=== PATIENT | female | born 1995 | race African-American/Black ===

== ENCOUNTER 2017-03-13 19:59 | Emergency (ER) | payer MEDICAID, OTHER ==
[~2017-03-13 19:59] MED LIST: OXYC1SOL5 PO; ZOVI800T13 PO
[2017-03-13 20:00] VITALS: BP 136/82; PULSE 64; RESP 16; TEMP 98.8; O2SAT 98
== END 2017-03-13 21:26 | disposition left against medical advice (07) ==
LOC: NED 19:59
DX: K92.9 Disease of digestive system, unspecified (principal)
CPT/HCPCS: 99281

== ENCOUNTER 2017-11-26 11:11 | Emergency (ER) | payer MEDICAID ==
[2017-11-26 11:12] VITALS: BP 119/84; PULSE 90; RESP 14; TEMP 98.2; O2SAT 100
[2017-11-26 11:42] VITALS: BP 122/71; PULSE 75; RESP 17; O2SAT 100
--- NOTE | 2017-11-26 12:30 | PD ---
HPI Chief Complaint: Dizziness Time Seen by Provider: 12:17 Travel History International Travel<30 days: No Contact w/Intl Traveler<30days: No Traveled to known affect area: No History of Present Illness HPI The patient was seen and examined in the presence of the nurse. This patient complains of lightheadedness and dizziness for one week. Severity is moderate. Reports at times feeling off balance. She denies any specific sensation of movement or room spinning vertigo type sensation. No syncope. No head injury or fever. No alleviating factors. No exacerbating factors. She doesn't think she is . PFSH Past Medical History Developmental Delay: No Diminished Hearing: No Immunizations Current: Yes ?: Not LMP: 11/08/2017 : 2 Para: 1 Social History Alcohol Use: No Tobacco Use: No Substance Use: No Allergies-Medications (Allergen,Severity, Reaction): Coded Allergies: No Known Allergies (Verified , 09/03/15) Reported Meds & Prescriptions Reported Meds & Active Scripts Active Oxycodone/Acetaminophen 5 mg/325 mg 1 Tab Tab 1 Tab PO Q4H PRN Reported Zovirax (Acyclovir) 800 Mg Tab 500 Mg PO BID Review of Systems General / Constitutional: No: Fever Eyes: No: Visual changes HENT: Positive: Lightheadedness, No: Headaches Cardiovascular: No: Chest Pain or Discomfort Respiratory: No: Shortness of Breath Gastrointestinal: No: Abdominal Pain Genitourinary: No: Dysuria Musculoskeletal: No: Pain Skin: No Rash Neurologic: Positive: Dizziness Psychiatric: No: Depression Endocrine: No: Polydipsia Hematologic/Lymphatic: No: Easy Bruising Physical Exam Narrative GENERAL: Well-nourished, well-developed patient in no apparent distress. SKIN: Focused skin assessment reveals no rash and nodules. Skin is Warm and dry. HEAD: Atraumatic. Normocephalic. EYES: Pupils equal and round. No scleral icterus. No injection or drainage. ENT: No nasal bleeding or discharge. Mucous membranes pink and moist. NECK: Trachea midline. No JVD. CARDIOVASCULAR: Regular rate and rhythm. No murmur appreciated. RESPIRATORY: No accessory muscle use. Clear to auscultation. Breath sounds equal bilaterally. GASTROINTESTINAL: Abdomen soft, non-tender, nondistended. Hepatic and splenic margins not palpable. MUSCULOSKELETAL: No obvious deformities. No clubbing. No cyanosis. No edema. NEUROLOGICAL: Awake and alert. No obvious cranial nerve deficits. Motor grossly within normal limits. Normal speech. PSYCHIATRIC: Appropriate mood and affect; insight and judgment normal. Data Data Last Documented VS Vital Signs Date Time Temp Pulse Resp B/P (MAP) Pulse Ox O2 Delivery O2 Flow Rate FiO2 11/26/17 11:42 75 17 122/71 (88) 100 Room Air 11/26/17 11:12 98.2 Orders Orders Complete Blood Count With Diff (11/26/17 12:26) Comprehensive Metabolic Panel (11/26/17 12:26) Thyroid Stimulating Hormone (11/26/17 12:26) Iv Access Insert/Monitor (11/26/17 12:26) Beta Hcg (Quant/Titer) (11/26/17 12:30) Labs Laboratory Tests Test 11/26/17 12:30 White Blood Count 5.5 TH/MM3 Red Blood Count 3.92 MIL/MM3 Hemoglobin 12.4 GM/DL Hematocrit 36.9 % Mean Corpuscular Volume 94.1 FL Mean Corpuscular Hemoglobin 31.7 PG Mean Corpuscular Hemoglobin Concent 33.7 % Red Cell Distribution Width 12.0 % Platelet Count 178 TH/MM3 Mean Platelet Volume 9.0 FL Neutrophils (%) (Auto) 71.4 % Lymphocytes (%) (Auto) 21.1 % Monocytes (%) (Auto) 7.0 % Eosinophils (%) (Auto) 0.2 % Basophils (%) (Auto) 0.3 % Neutrophils # (Auto) 3.9 TH/MM3 Lymphocytes # (Auto) 1.2 TH/MM3 Monocytes # (Auto) 0.4 TH/MM3 Eosinophils # (Auto) 0.0 TH/MM3 Basophils # (Auto) 0.0 TH/MM3 CBC Comment DIFF FINAL Differential Comment Blood Urea Nitrogen 8 MG/DL Creatinine 0.59 MG/DL Random Glucose 86 MG/DL Total Protein 8.2 GM/DL Albumin 4.1 GM/DL Calcium Level 9.0 MG/DL Alkaline Phosphatase 62 U/L Aspartate Amino Transf (AST/SGOT) 12 U/L Alanine Aminotransferase (ALT/SGPT) 16 U/L Total Bilirubin 0.8 MG/DL Sodium Level 139 MEQ/L Potassium Level 3.6 MEQ/L Chloride Level 104 MEQ/L Carbon Dioxide Level 27.0 MEQ/L Anion Gap 8 MEQ/L Estimat Glomerular Filtration Rate 154 ML/MIN Thyroid Stimulating Hormone 3rd Gen 0.220 uIU/ML Human Chorionic Gonadotropin, Quant LESS THAN 1 MIU/ML MDM Medical Decision Making Medical Screen Exam Complete: Yes Emergency Medical Condition: Yes Medical Record Reviewed: Yes Differential Diagnosis , location, anemia, vertigo Narrative Course I have reviewed the patient's electronic medical record. IV placed CBC is normal metabolic profile is normal LFTs are normal Beta hCG is negative TSH is a tiny bit low at 0.22 and I advised her to have her physician recheck it at some point in the future Work appear negative and stable for outpatient follow-up. Nothing objective on exam or vitals Diagnosis Primary Impression: Lightheadedness Additional Instructions: The patient was advised to follow up with their physician and return if they worsen. Med/Other Pt SpecificInfo: Other Disposition: 01 DISCHARGE HOME Condition: Stable Narciso Coyle MD Nov 26, 2017 12:30
[2017-11-26 13:01] LABS: AUTOMATED NEUTROPHIL # 3.9 TH/MM3 (1.8-7.7); BASOPHIL % 0.3 % (0.0-2.0); EOSINOPHIL % 0.2 % (0.0-4.0); HEMATOCRIT 36.9 % (35.0-46.0); HEMOGLOBIN 12.4 GM/DL (11.6-15.3); LYMPH % 21.1 % (9.0-44.0); LYMPHOCYTE # 1.2 TH/MM3 (1.0-4.8); MEAN CELL VOLUME 94.1 FL (80.0-100.0); MEAN CORPUSCULAR HEMOGLOBIN 31.7 PG (27.0-34.0); MEAN CORPUSCULAR HGB CONC 33.7 % (32.0-36.0); MONOCYTE # 0.4 TH/MM3 (0-0.9); NEUT % 71.4 % (16.0-70.0); PLATELET COUNT 178 TH/MM3 (150-450); RED BLOOD COUNT 3.92 MIL/MM3 (4.00-5.30); WHITE BLOOD COUNT 5.5 TH/MM3 (4.0-11.0)
[2017-11-26 13:31] LABS: ALBUMIN 4.1 GM/DL (3.4-5.0); AST (GOT) 12 U/L (15-37); BLOOD UREA NITROGEN 8 MG/DL (7-18); CHLORIDE 104 MEQ/L (98-107); CREATININE 0.59 MG/DL (0.50-1.00); GLOMERULAR FILTRATION RATE 154 ML/MIN (>89); GLUCOSE,RANDOM 86 MG/DL (74-106); SODIUM (NA) 139 MEQ/L (136-145)
[2017-11-26 13:32] LABS: ALT (GPT) 16 U/L (10-53)
[2017-11-26 13:42] LABS: ALKALINE PHOSPHATASE 62 U/L (45-117); TOTAL BILIRUBIN ADULT 0.8 MG/DL (0.2-1.0); TOTAL PROTEIN 8.2 GM/DL (6.4-8.2)
== END 2017-11-26 16:03 | disposition home or self-care (01) ==
LOC: NEPD 11:11
DX: R42 Dizziness and giddiness (principal); Z79.899 Other long term (current) drug therapy
CPT/HCPCS: 80053; 84443; 84702; 85025; 99283